=== PATIENT | male | born 1960 | race Caucasian/White ===

== ENCOUNTER 2016-12-13 16:58 | Emergency (ER) | payer SELFPAY ==
[~2016-12-13] VITALS: Ht 180.3 cm; Wt 69.5 kg
[~2016-12-13 16:58] MED LIST: CETI1TAB21 PO; CIPR500T2 PO; IBUP-232 PO; LORT5TAB PO; METR-1 PO
[2016-12-13 17:06] VITALS: BP 117/76; PULSE 98; RESP 20; TEMP 98.5; O2SAT 98
--- NOTE | 2016-12-13 17:31 | PD ---
HPI . "my stomach" Chief Complaint: Abdominal Pain Time Seen by Provider: 17:13 Travel History International Travel<30 days: No Contact w/Intl Traveler<30days: No Traveled to known affect area: No History of Present Illness HPI 56 year old male presents complaining of abdominal pain and diarrhea that started late Tuesday afternoon. Patient reports diffuse abdominal pain that comes and goes. Rates it as a 5-6/10. He has had associated diarrhea, about 20- 25 episodes yesterday. Denies any blood in the stool. Pain is aggravated by drinking water. Alleviated with Aleve and gas-x. Imodium has slowed down the diarrhea. Denies any fevers but does report some chills and sweats at the onset. Denies nausea and vomiting. Reports associated lethargy and burping. No one else has similar symptoms at home. He denies any recent antibiotic use. PFSH Past Medical History Arthritis: No Asthma: No Autoimmune Disease: No Heart Rhythm Problems: No Cancer: No Cardiovascular Problems: No High Cholesterol: No Chemotherapy: No Chest Pain: No Congestive Heart Failure: No COPD: No Cerebrovascular Accident: No Diabetes: No Diminished Hearing: No Endocrine: No Gastrointestinal Disorders: Yes (small bowel obstruction) GERD: Yes (SOMETIMES) Genitourinary: No Hiatal Hernia: No Immune Disorder: No Kidney Stones: No Musculoskeletal: No Neurologic: No Psychiatric: No Reproductive: No Respiratory: No Migraines: No Radiation Therapy: No Renal Failure: No Seizures: No Sickle Cell Disease: No Sleep Apnea: No Thyroid Disease: No Ulcer: No Tetanus Vaccination: Unknown Influenza Vaccination: No Past Surgical History Abdominal Surgery: No AICD: No Arteriovenous Shunt: No Cardiac Surgery: No Ear Surgery: No Endocrine Surgery: No Eye Surgery: No Genitourinary Surgery: No Gynecologic Surgery: No Insulin Pump: No Joint Replacement: No Oral Surgery: No Pacemaker: No Thoracic Surgery: No Social History Alcohol Use: Yes (OCCAISIONAL) Tobacco Use: Yes (2PPD) Substance Use: No Allergies-Medications (Allergen,Severity, Reaction): Coded Allergies: No Known Allergies (Verified , 12/13/16) Reported Meds & Prescriptions Reported Meds & Active Scripts Active Prednisone 20 Mg Tab 60 Mg PO DAILY PRN 5 Days 40 MG twice a day x 3 days, then 20 MG daily x 3 days, then 10 MG daily x 3 days Review of Systems General / Constitutional: Positive: Other (lethargy), No: Fever, Chills Gastrointestinal: Positive: Diarrhea, Abdominal Pain, No: Nausea, Vomiting, Hematochezia Genitourinary: No: Frequency, Dysuria Musculoskeletal: Positive: Weakness (diffuse) Neurologic: No: Syncope Physical Exam Narrative GENERAL: awake and alert, well-developed male in no acute distress. SKIN: Warm and dry. HEAD: Atraumatic. Normocephalic. EYES: Pupils equal and round. ENT: No nasal bleeding or discharge. Mucous membranes pink and dry. NECK: Trachea midline. CARDIOVASCULAR: Regular rate and rhythm. RESPIRATORY: Lungs clear to auscultation. No accessory muscle use. GASTROINTESTINAL: Abdomen soft, non-tender, nondistended. No rebound or guarding. MUSCULOSKELETAL: No obvious deformities. No edema. NEUROLOGICAL: Awake and alert. No obvious cranial nerve deficits. Motor grossly within normal limits. Normal speech. PSYCHIATRIC: Appropriate mood and affect; insight and judgment normal. Data Data Last Documented VS Vital Signs Date Time Temp Pulse Resp B/P Pulse Ox O2 Delivery O2 Flow Rate FiO2 12/13/16 21:10 78 16 128/77 97 Room Air 12/13/16 17:06 98.5 Orders Sodium Chlor 0.9% 1000 Ml Inj (Ns 1000 M (12/13/16 17:45) Sodium Chlor 0.9% 1000 Ml Inj (Ns 1000 M (12/13/16 17:45) Dicyclomine Inj (Bentyl Inj) (12/13/16 17:45) Al-Mag Hy-Si 40-40-4 Mg/Ml Liq (Mag-Al P (12/13/16 18:45) Lidocaine 2% Viscous (Xylocaine 2% Visco (12/13/16 18:45) Sodium Chlor 0.9% 1000 Ml Inj (Ns 1000 M (12/13/16 19:15) Complete Blood Count With Diff (12/13/16 19:37) Comprehensive Metabolic Panel (12/13/16 19:37) Lipase (12/13/16 19:37) Ct Abd/Pel W Iv Contrast(Rout) (12/13/16 19:37) Morphine Inj (Morphine Inj) (12/13/16 19:45) Ondansetron Inj (Zofran Inj) (12/13/16 19:45) Sodium Chlor 0.9% 1000 Ml Inj (Ns 1000 M (12/13/16 19:37) Sodium Chloride 0.9% Flush (Ns Flush) (12/13/16 19:45) Morphine Inj (Morphine Inj) (12/13/16 19:49) Iohexol 350 Inj (Omnipaque 350 Inj) (12/13/16 22:03) Methylprednisolone So Succ Inj (Solumedr (12/13/16 22:30) Labs Laboratory Tests Test 12/13/16 19:47 White Blood Count 10.4 TH/MM3 Red Blood Count 4.39 MIL/MM3 Hemoglobin 13.3 GM/DL Hematocrit 39.5 % Mean Corpuscular Volume 90.1 FL Mean Corpuscular Hemoglobin 30.3 PG Mean Corpuscular Hemoglobin 33.7 % Concent Red Cell Distribution Width 12.9 % Platelet Count 187 TH/MM3 Mean Platelet Volume 7.4 FL Neutrophils (%) (Auto) 85.2 % Lymphocytes (%) (Auto) 8.9 % Monocytes (%) (Auto) 5.5 % Eosinophils (%) (Auto) 0.2 % Basophils (%) (Auto) 0.2 % Neutrophils # (Auto) 8.9 TH/MM3 Lymphocytes # (Auto) 0.9 TH/MM3 Monocytes # (Auto) 0.6 TH/MM3 Eosinophils # (Auto) 0.0 TH/MM3 Basophils # (Auto) 0.0 TH/MM3 CBC Comment DIFF FINAL Differential Comment Sodium Level 139 MEQ/L Potassium Level 3.8 MEQ/L Chloride Level 106 MEQ/L Carbon Dioxide Level 25.9 MEQ/L Anion Gap 7 MEQ/L Blood Urea Nitrogen 13 MG/DL Creatinine 0.76 MG/DL Estimat Glomerular Filtration 106 ML/MIN Rate Random Glucose 83 MG/DL Calcium Level 7.4 MG/DL Protein Corrected Calcium 8.3 MG/DL Total Bilirubin 0.3 MG/DL Aspartate Amino Transf 11 U/L (AST/SGOT) Alanine Aminotransferase 12 U/L (ALT/SGPT) Alkaline Phosphatase 50 U/L Total Protein 5.5 GM/DL Albumin 2.6 GM/DL Lipase 87 U/L [facility] Medical Decision Making Medical Screen Exam Complete: Yes Emergency Medical Condition: Yes Differential Diagnosis Differentials include gastroenteritis, appendicitis, pancreatitis, hepatitis. Narrative Course Patient presents with abdominal pain and diarrhea for 2 days. His exam was benign and did not suggest appendicitis or small bowel pathology. He is most likely dehydrated secondary to gastroenteritis. Patient will be given fluids and Bentyl for abdominal cramping. Following 2L IVF, Bentyl and GI cocktail, patient feels better but has not yet had the urge to urinate. Will give a 3rd L. After IV fluids and IM Bentyl he continued to complain of epigastric pain with radiation to his back so an abdominal pain workup was initiated with CMP, CBC, and abdominal CT. Last Impressions Abdomen/Pelvis CT 12/13/161936 Signed Impressions: Service Date/Time: Tuesday, December 13, 2016 21:39 - CONCLUSION: There is bowel wall thickening suspicious for inflammatory bowel disease with involvement of the distal ileum and proximal colon. This appears to be more than simple colitis. There is no free fluid or free air. Johan Ga MD FACR UpTo[employer] was queried. Antibiotics are not recommended. CBC & BMP Diagram 12/13/16 19:47 LFTs are normal. Lipase is normal. Patient will be sent home with Prednisone for inflammation and will be referred to GI. Diagnosis Primary Impression: Colitis Patient Instructions: Acute Diarrhea (ED), Colitis (ED), General Instructions Med/Other Pt SpecificInfo: Prescription(s) given Scripts Prednisone 20 Mg Tab60 Mg PO DAILY PRN (inflammation) 5 Days Ref 0 40 MG twice a day x 3 days, then 20 MG daily x 3 days, then 10 MG daily x 3 days Prov:Theresa Carvajal MD 12/13/16 Disposition: 01 DISCHARGE HOME Condition: Stable Theresa Carvajal MD Dec 13, 2016 17:31
[2016-12-13] MEDS ORDERED: DICYCLOMINE HCL 20 MG/2 ML VIAL IM ONE (17:45)
[2016-12-13] MEDS ORDERED: SODIUM CHLOR 0.9% 1000 ML INJ 1,000 ML IV ONE ×3 (17:45→19:15)
[2016-12-13 17:53] VITALS: BP 120/84
[2016-12-13] MEDS ORDERED: ALUMINUM/MAGNESIUM/SIMETH 30 ML CUP PO ONE (18:45)
[2016-12-13] MEDS ORDERED: LIDOCAINE VISCOUS 2% SOLN 15 ML UDC PO ONE (18:45)
[2016-12-13 19:18] VITALS: BP 120/75; PULSE 88; RESP 18; O2SAT 97
[2016-12-13] MEDS ORDERED: SODIUM CHLOR 0.9% 1000 ML INJ 1,000 ML IV SCH (19:37)
[2016-12-13] MEDS ORDERED: SODIUM CHLORIDE 0.9% FLUSH 10 ML FLUSH IV FLUSH PRN (19:45)
[2016-12-13] MEDS ORDERED: MORPHINE SULFATE 4 MG/ML INJ IV PUSH ONE (19:45)
[2016-12-13] MEDS ORDERED: ONDANSETRON HCL 4 MG/2 ML VIAL IVP ONE (19:45)
[2016-12-13] MEDS ORDERED: MORPHINE SULFATE 8 MG/ML INJ ONE (19:49)
[2016-12-13 19:51] LABS: AUTOMATED NEUTROPHIL # 8.9 TH/MM3 (1.8-7.7); BASOPHIL % 0.2 % (0.0-2.0); EOSINOPHIL % 0.2 % (0.0-4.0); HEMATOCRIT 39.5 % (39.0-51.0); LYMPH % 8.9 % (9.0-44.0); LYMPHOCYTE # 0.9 TH/MM3 (1.0-4.8); MEAN CELL VOLUME 90.1 FL (80.0-100.0); MEAN CORPUSCULAR HEMOGLOBIN 30.3 PG (27.0-34.0); MEAN CORPUSCULAR HGB CONC 33.7 % (32.0-36.0); MONO % 5.5 % (0.0-8.0); NEUT % 85.2 % (16.0-70.0); PLATELET COUNT 187 TH/MM3 (150-450); RED BLOOD COUNT 4.39 MIL/MM3 (4.50-5.90); RED CELL DISTRIBUTION WIDTH 12.9 % (11.6-17.2); WHITE BLOOD COUNT 10.4 TH/MM3 (4.0-11.0)
[2016-12-13 20:00] LABS: POTASSIUM 3.8 MEQ/L (3.5-5.1)
[2016-12-13 20:07] LABS: HEMO FLAGS DIFF FINAL
[2016-12-13 20:30] VITALS: BP 138/81; PULSE 78; RESP 17; O2SAT 97
[2016-12-13 21:10] VITALS: BP 128/77; PULSE 78; RESP 16; O2SAT 97
[2016-12-13 21:30] LABS: BICARBONATE 25.9 MEQ/L (21.0-32.0); CALCIUM-PROTEIN CORRECTED 8.3 MG/DL (8.5-10.1); TOTAL BILIRUBIN ADULT 0.3 MG/DL (0.2-1.0)
[2016-12-13] MEDS ORDERED: IOHEXOL 350 MG/ML 10 ML VIAL (for RAD DIAG) IV ONE (22:03)
--- NOTE | 2016-12-13 22:12 | RADRPT ---
EXAM DATE/TIME: 12/13/2016 21:39 [facility] COMPARISON: CT ABDOMEN & PELVIS W CONTRAST, April 04, 2011, 15:45. INDICATIONS : Abdominal pain and diarrhea for three days. IV CONTRAST: 100 cc Omnipaque 350 (iohexol) IV ORAL CONTRAST: No oral contrast ingested. RADIATION DOSE: 6.93 CTDIvol (mGy) MEDICAL HISTORY : Gastroesophageal reflux disease. SURGICAL HISTORY : None. ENCOUNTER: Initial ACUITY: 3 days PAIN SCALE: 5/10 LOCATION: Bilateral lower quadrant upper quadrant TECHNIQUE: Volumetric scanning of the abdomen and pelvis was performed. Using automated exposure control and ad justment of the mA and/or kV according to patient size, radiation dose was kept as low as reasonably achievable to obtain optimal diagnostic quality images. DICOM format image data is available electro nically for review and comparison. FINDINGS: LOWER LUNGS: Minimal bibasilar parenchymal changes are present. LIVER: Homogeneous density without lesion. There is no dilation of the biliary tree. SPLEEN: Normal size without lesion. PANCREAS: Normal without calcifications. ADRENAL GLANDS: Within normal limits.. KIDNEYS: Normal in size and shape. There is no mass, stone or hydronephrosis. CECUM: There is bowel wall thickening beginning in the terminal ileum extending through the mid transverse c olon. BOWEL/MESENTERY: There is minimal bowel wall thickening in the mid descending colon. ABDOMINAL WALL: Within normal limits. RETROPERITONEUM: There is no lymphadenopathy. PELVIS: There is no adnexal mass or inflammatory changes.. INGUINAL: There is no lymphadenopathy or hernia. MUSCULOSKELETAL: Within normal limits for patient age. CONCLUSION: There is bowel wall thickening suspicious for inflammatory bowel disease with involvement of the dist al ileum and proximal colon. This appears to be more than simple colitis. There is no free fluid or free air. Johan Ga MD FACR on December 13, 2016 at 22:07 Board Certified Radiologist. This report was verified electronically.
[2016-12-13] MEDS ORDERED: PRED20 PO (22:30)
[2016-12-13] MEDS ORDERED: methylPREDNISolone SOD SUCC 125 MG/2 ML VIAL IV PUSH ONE (22:30)
[2016-12-13] MEDS ORDERED: DICY10 PO (22:43)
== END 2016-12-13 23:02 | disposition home or self-care (01) ==
LOC: PHED 16:58
DX: K52.9 Noninfective gastroenteritis and colitis, unspecified (principal); R68.83 Chills (without fever); R61 Generalized hyperhidrosis; R53.83 Other fatigue; F17.200 Nicotine dependence, unspecified, uncomplicated; Z87.19 Personal history of other diseases of the digestive system
CPT/HCPCS: 74177; 80053; 83690; 85025; 96361; 96372; 96374; 96375; 99285; J0500; J2270; J2405; J2930; J7030; Q9967